=== PATIENT | male | born 1960 | race Hispanic/Latino ===

== ENCOUNTER 2023-06-11 17:12 | Emergency (ER) | payer OTHER, MEDICARE ==
[~2023-06-11] VITALS: Ht 167.6 cm; Wt 81.6 kg
[2023-06-11] MEDS ORDERED: ACETAMINOPHEN 500 MG TABLET PO ONE (17:30)
[2023-06-11 17:38] LABS: RAPID GROUP A STREP negative (NEGATIVE)
[2023-06-11 17:48] LABS: INFLUENZA TYPE A Negative For Type A (NEGATIVE); INFLUENZA TYPE B Negative For Type B (NEGATIVE)
[2023-06-11 17:50] LABS: SARS-CoV-2, RNA, NAAT POSITIVE SARS CoV-2 (NEGATIVE)
[2023-06-11 18:14] VITALS: TEMP 99.9
[2023-06-11] MEDS ORDERED: BENZ-39 PO (18:18)
[2023-06-11] MEDS ORDERED: ALBUHFA IH (18:18)
[2023-06-11 18:23] VITALS: BP 142/85; PULSE 102; RESP 14; O2SAT 98
== END 2023-06-11 18:28 | disposition home or self-care (01) ==
LOC: EDH 17:12
DX: U07.1 COVID-19 (principal); R50.9 Fever, unspecified; R05.9 Cough, unspecified; I10 Essential (primary) hypertension; E78.00 Pure hypercholesterolemia, unspecified; E11.9 Type 2 diabetes mellitus without complications; M06.9 Rheumatoid arthritis, unspecified
CPT/HCPCS: 99283; 87635; 87880; 87804 ×2; C9803